=== PATIENT | female | born 1970 | race African-American/Black ===

== ENCOUNTER 2024-01-24 08:01 | Inpatient (IN) | payer BC, OTHER ==
[~2024-01-24] VITALS: Ht 162.6 cm; Wt 59.0 kg
[2024-01-24] VITALS (54 sets, daily range): BP systolic 39–106; BP diastolic 29–74; PULSE 63–141; RESP 18–35; TEMP 97–98.6
[2024-01-24 08:33] LABS: HEMATOCRIT. 26.9 % (36.0-48.0); HEMOGLOBIN. 8.6 g/dL (12.0-16.0); MEAN CORPUSCULAR HEMOGLOBIN 27.3 pg (28.0-32.0); MEAN CORPUSCULAR HGB CONC 31.8 g/dL (31.0-37.0); MEAN CORPUSCULAR VOLUME 85.7 fL (81.0-99.0); MEAN PLATELET VOLUME 12.9 fl (7.4-10.4); PLATELET 168 x1000/uL (130-400); RED BLOOD CELL COUNT 3.14 mill/uL (4.2-5.4); RED CELL DISTRIBUTION WIDTH 20.7 % (11.6-14.6); WHITE BLOOD COUNT 13.7 x1000/uL (4.5-11.0)
[2024-01-24] MEDS: SODIUM CHLORIDE 0.9% 1000ML BAG (SEPSIS BOLUS) IV ONE (08:33)
[2024-01-24 08:34] LABS: DIFFERENTIAL COMMENT 1
[2024-01-24 08:44] LABS: CARBON DIOXIDE 17 mEq/L (21-32); CHLORIDE 111 mEq/L (98-107); POTASSIUM 4.4 mEq/L (3.5-5.1); SODIUM 143 mEq/L (136-145)
[2024-01-24 08:50] LABS: CREATININE 3.7 mg/dL (0.6-1.0); GLUCOSE 89 mg/dL (70-105)
[2024-01-24 08:51] LABS: ALBUMIN 3.6 g/dL (3.2-4.8); LACTATE DEHYDROGENASE 248 IU/L (120-246)
[2024-01-24 08:52] LABS: ALANINE AMINOTRANSFERASE 125 IU/L (10-49); ASPARTATE AMINOTRANSFERASE 139 IU/L (<34); BILIRUBIN TOTAL 13.9 mg/dL (0.1-1.0); PROTEIN TOTAL 8.3 g/dL (6.0-8.3)
[2024-01-24 08:55] LABS: ETHANOL BLOOD < 10 mg/dL (<10)
[2024-01-24 08:56] LABS: UREA NITROGEN BLOOD 115 mg/dL (9-23)
[2024-01-24 08:57] LABS: CREATINE KINASE < 15 IU/L (34-145); TROPONIN I HIGH SENSITIVITY 37 ng/L (3.0-34)
[2024-01-24] MEDS: PIPERACILLIN/TAZO 3.375G/50ML 50 ML IV STA (09:13)
[2024-01-24 10:09] LABS: BG BASE EXCESS -10.5 mmol/L (-2.0-2.0); BG CARBOXYHEMOGLOBIN 0.4 % (0.5-1.5); BG DEOXYHEMOGLOBIN 18.5 % (0.0-5.0); BG FRACTION INSPIRED OXYGEN 100; BG HCO3 ACT 16.8 mmol/L (22.0-26.0); BG METHEMOGLOBIN 0.3 % (0.0-1.5); BG OXYGEN SATURATION 81.4 % (92.0-98.5); BG OXYHEMOGLOBIN 80.8 % (94.0-97.0); BG PCO2 43.5 mmHg (35.0-45.0); BG PH 7.204 (7.350-7.450); BG PO2 54.4 mmHg (75.0-100.0); BG SAMPLE SITE RIGHT BRACHIAL; BG TOTAL HEMOGLOBIN 8.5 g/dL (12.0-18.0); BG VENT MODE MASK - NRB
[2024-01-24] MEDS: NOREPINEPHRINE 8MG/250ML PMX 250 ML IV ONE (10:25)
[2024-01-24 10:37] LABS: INR 1.3; PROTHROMBIN TIME 14.4 sec (9.6-11.0)
[2024-01-24] MEDS: MIDAZOLAM HCL 2 MG/2 ML VIAL IV ONE (10:41)
[2024-01-24] MEDS: SODIUM CHLORIDE 0.9% 500 ML IV ONE (10:42)
[2024-01-24] MEDS ORDERED: ACETAMINOPHEN 325MG TABLET PO PRN (11:30)
[2024-01-24] MEDS ORDERED: ONDANSETRON HCL 4MG/2ML INJ IV PRN (11:30)
[2024-01-24] MEDS ORDERED: PROPOFOL 10MG/ML 100ML 100 ML IV SCH (11:45)
[2024-01-24] MEDS ORDERED: VANCOMYCIN 750MG/150ML IV NR (12:00)
[2024-01-24] MEDS ORDERED: MIDAZOLAM 100MG/100ML PMX 100 ML IV PRN (12:15)
[2024-01-24] MEDS: PANTOPRAZOLE SODIUM 40 MG/VIAL IV SCH (12:19)
[2024-01-24] MEDS: DEXT 5%/0.45% NACL 1000ML 1,000 ML IV SCH (12:19)
[2024-01-24] MEDS: MIDAZOLAM 100MG/100ML PMX 100 ML IV PRN ×2 (12:50→17:14)
[2024-01-24] MEDS ORDERED: FENTANYL 2500MCG/250ML PMX 250 ML IV PRN (13:00)
[2024-01-24] MEDS ORDERED: PHENYLEPHRINE 50MG/250ML PMX 250 ML IV PRN (13:00)
[2024-01-24] MEDS ORDERED: NOREPINEPHRINE 8MG/250ML PMX 250 ML IV PRN (13:00)
[2024-01-24] MEDS ORDERED: VASOPRESSIN 20 UNIT in SODIUM CHLORIDE 0.9% 99 ML IV PRN (13:00)
[2024-01-24 13:25] LABS: ANISOCYTOSIS 2+; HYPOCHROMASIA 1+; PLATELET ESTIMATE NORMAL; TARGET CELLS 1+
[2024-01-24] MEDS: PHENYLEPHRINE 50MG/250ML PMX 250 ML IV PRN (13:25)
[2024-01-24] MEDS: NOREPINEPHRINE 8MG/250ML PMX 250 ML IV PRN (13:27)
[2024-01-24] MEDS: VASOPRESSIN 20 UNIT in SODIUM CHLORIDE 0.9% 99 ML IV PRN (13:38)
[2024-01-24] MEDS: SODIUM BICARBONATE 150 MEQ in DEXTROSE 5% WATER 850 ML IV SCH (13:48)
[2024-01-24 13:49] LABS: BG BASE EXCESS -16.3 mmol/L (-2.0-2.0); BG CARBOXYHEMOGLOBIN 0.4 % (0.5-1.5); BG DEOXYHEMOGLOBIN 40.2 % (0.0-5.0); BG FRACTION INSPIRED OXYGEN 100; BG HCO3 ACT 14.6 mmol/L (22.0-26.0); BG METHEMOGLOBIN 0.1 % (0.0-1.5); BG OXYGEN SATURATION 59.6 % (92.0-98.5); BG OXYHEMOGLOBIN 59.3 % (94.0-97.0); BG PCO2 59.5 mmHg (35.0-45.0); BG PH 7.008 (7.350-7.450); BG PO2 42.9 mmHg (75.0-100.0); BG SAMPLE SITE RIGHT RADIAL; BG TOTAL HEMOGLOBIN 10.5 g/dL (12.0-18.0); BG VENT MODE VENT - AC
[2024-01-24 19:05] LABS: BG BASE EXCESS -16.7 mmol/L (-2.0-2.0); BG CARBOXYHEMOGLOBIN 0.6 % (0.5-1.5); BG DEOXYHEMOGLOBIN 22.7 % (0.0-5.0); BG FRACTION INSPIRED OXYGEN 100; BG HCO3 ACT 13.1 mmol/L (22.0-26.0); BG METHEMOGLOBIN 0.3 % (0.0-1.5); BG OXYGEN SATURATION 77.1 % (92.0-98.5); BG OXYHEMOGLOBIN 76.4 % (94.0-97.0); BG PCO2 46.7 mmHg (35.0-45.0); BG PH 7.066 (7.350-7.450); BG SAMPLE SITE RIGHT RADIAL; BG TOTAL HEMOGLOBIN 12.2 g/dL (12.0-18.0); BG VENT MODE VENT - AC
[2024-01-24] MEDS: SODIUM BICARBONATE 8.4% 1 MEQ/ML 50ML SYR IV NR (19:41)
[2024-01-24] MEDS: EPINEPHRINE 10 MG in SODIUM CHLORIDE 0.9% 240 ML IV PRN (19:42)
[2024-01-24] MEDS: FENTANYL 2500MCG/250ML PMX 250 ML IV PRN (20:26)
[2024-01-24] MEDS: PIPERACILLIN/TAZO 3.375G/50ML 50 ML IV SCH (21:00)
[2024-01-24] MEDS: PHENYLEPHRINE 100 MG in DEXT 5% WATER 240 ML IV PRN (23:12)
[2024-01-24] MEDS: NOREPINEPHRINE 32 MG in DEXT 5% WATER 218 ML IV PRN (23:12)
[2024-01-25] VITALS (52 sets, daily range): BP systolic 75–94; BP diastolic 28–73; PULSE 79–109; RESP 30–37; TEMP 93–98.3; O2SAT 100
[2024-01-25] MEDS: MIDAZOLAM 100MG/100ML PMX 100 ML IV PRN (06:16)
[2024-01-25 07:21] LABS: CARBON DIOXIDE 14 mEq/L (21-32); CHLORIDE 111 mEq/L (98-107); POTASSIUM 4.9 mEq/L (3.5-5.1); SODIUM 146 mEq/L (136-145)
[2024-01-25 07:27] LABS: CREATININE 3.6 mg/dL (0.6-1.0); GLUCOSE 93 mg/dL (70-105)
[2024-01-25 07:29] LABS: PHOSPHORUS 7.5 mg/dL (2.5-4.9)
[2024-01-25 09:23] LABS: UREA NITROGEN BLOOD 120 mg/dL (9-23)
[2024-01-25 09:28] LABS: BG BASE EXCESS -14.9 mmol/L (-2.0-2.0); BG CARBOXYHEMOGLOBIN 0.3 % (0.5-1.5); BG DEOXYHEMOGLOBIN 1.1 % (0.0-5.0); BG FRACTION INSPIRED OXYGEN 100; BG HCO3 ACT 12.3 mmol/L (22.0-26.0); BG METHEMOGLOBIN 0.3 % (0.0-1.5); BG OXYGEN SATURATION 98.9 % (92.0-98.5); BG OXYHEMOGLOBIN 98.3 % (94.0-97.0); BG PH 7.177 (7.350-7.450); BG SAMPLE SITE LEFT RADIAL; BG TOTAL HEMOGLOBIN 9.6 g/dL (12.0-18.0); BG TOTAL RESPIRATORY RATE 35 b/min; BG VENT MODE VENT - AC
[2024-01-25 11:06] LABS: HEMATOCRIT. 29.5 % (36.0-48.0); HEMOGLOBIN. 9.4 g/dL (12.0-16.0); MEAN CORPUSCULAR HEMOGLOBIN 27.9 pg (28.0-32.0); MEAN CORPUSCULAR HGB CONC 31.8 g/dL (31.0-37.0); MEAN CORPUSCULAR VOLUME 87.6 fL (81.0-99.0); RED BLOOD CELL COUNT 3.36 mill/uL (4.2-5.4); RED CELL DISTRIBUTION WIDTH 21.5 % (11.6-14.6); WHITE BLOOD COUNT 12.4 x1000/uL (4.5-11.0)
[2024-01-25 11:08] LABS: DIFFERENTIAL COMMENT 1
[2024-01-25 11:47] LABS: ANISOCYTOSIS 3+; TARGET CELLS 1+
[2024-01-25 11:49] LABS: GIANT PLATELETS FEW; MEAN PLATELET VOLUME 11.1 fl (7.4-10.4); PLATELET ESTIMATE DECREASED
[2024-01-25 11:50] LABS: PLATELET 70 x1000/uL (130-400)
== END 2024-01-25 14:00 | DRG 871 ==
LOC: ER 08:15 → EDBEDREQ 10:04 → CVICU 10:55 → EDBEDREQTM 10:59 → EDBEDREQSVC 10:59
PROVIDERS: ADMIT Internal Medicine; ATTEND Internal Medicine
PROC: 0BH17EZ Insertion of Endotracheal Airway into Trachea, Via Natural or Artificial Opening (ICD-10-PCS; principal; 2024-01-24)
PROC: 5A1935Z Respiratory Ventilation, Less than 24 Consecutive Hours (ICD-10-PCS; 2024-01-24)
DX: A41.9 Sepsis, unspecified organism (principal); I21.4 Non-ST elevation (NSTEMI) myocardial infarction; J18.9 Pneumonia, unspecified organism; J96.01 Acute respiratory failure with hypoxia; R65.21 Severe sepsis with septic shock; N17.0 Acute kidney failure with tubular necrosis; C25.9 Malignant neoplasm of pancreas, unspecified; N18.4 Chronic kidney disease, stage 4 (severe); D64.9 Anemia, unspecified; G89.29 Other chronic pain; Z66 Do not resuscitate; R74.01 Elevation of levels of liver transaminase levels; I12.9 Hypertensive chronic kidney disease with stage 1 through stage 4 chronic kidney disease, or unspecified chronic kidney disease; I46.9 Cardiac arrest, cause unspecified; Z85.07 Personal history of malignant neoplasm of pancreas; Z82.49 Family history of ischemic heart disease and other diseases of the circulatory system; Z51.5 Encounter for palliative care
CPT/HCPCS: 31500; 36415; 36600; 71045; 80048; 80053; 80320; 82375; 82550; 82805; 82962; 83605; 83615; 83735; 83880; 84100; 84145; 84484; 85025; 86850; 86900; 87070; 94002; 94003; 99291; 99292; C9113; J2250; J2370; J2543; J3370; J3490; J7030; J7040; J7050; J7060; J7070; G0480